=== PATIENT | female | born 1965 | race Caucasian/White ===

== ENCOUNTER 2018-06-12 12:20 | Emergency (ER) | payer OTHER ==
--- NOTE | 2018-06-12 14:09 | RAD ---
RIGHT KNEE FOUR VIEWS: 06/12/2018 HISTORY: Fall from standing. Patient landed on bilateral knees. Bilateral knee injury. FINDINGS: There is tricompartment osteophytosis. There is narrowing involving the medial joint compartment of the left knee. No fracture or dislocation is seen. There is lucency seen below the tibial spines, n oted on one of the oblique views, which may be related to subchondral cystic formation. IMPRESSION: Osteoarthritis without evidence of an acute fracture visualized. POS: KAIN
--- NOTE | 2018-06-12 14:10 | RAD ---
LEFT KNEE FOUR VIEWS: HISTORY: Pain. Injury. Fell from standing position. FINDINGS: There is an uncomplicated left knee arthroplasty. No fracture. No cortical irregularity or perioste al reaction. No joint effusion. IMPRESSION: No posttraumatic change. POS: KAIN
== END 2018-06-12 13:51 | disposition home or self-care (01) ==
LOC: ERS 12:20
DX: S80.02XA Contusion of left knee, initial encounter (principal); S80.01XA Contusion of right knee, initial encounter; I10 Essential (primary) hypertension; Z79.899 Other long term (current) drug therapy; W01.0XXA Fall on same level from slipping, tripping and stumbling without subsequent striking against object, initial encounter; Y93.01 Activity, walking, marching and hiking

== ENCOUNTER 2018-10-16 09:42 | Emergency (ER) | payer OTHER ==
--- NOTE | 2018-10-16 10:39 | RAD ---
RIGHT ANKLE RADIOGRAPHS THREE VIEWS: Date: 10-16-18 Provided Clinical History: Right ankle pain status post injury. FINDINGS: There is no evidence for fracture or other acute osseous abnormality. If there is persistent clinical concern, conservative management and follow up imaging are advised. IMPRESSION: As above. POS: TPC
--- NOTE | 2018-10-16 10:45 | RAD ---
RIGHT KNEE RADIOGRAPHS FOUR VIEWS: 10/16/2018 PROVIDED CLINICAL HISTORY: Right knee pain status post injury. COMPARISON: 06/12/2018 FINDINGS: Tricompartmental degenerative changes are redemonstrated with medial femorotibial joint space narrowi ng again seen. There is no evidence for fracture or other acute osseous abnormality. No significant knee joint capsular distention is evident. IMPRESSION: Degenerative change without evidence for an acute osseous abnormality. If there is persistent clinical concern, conservative management and follow-up imaging are advised. POS: TPC
--- NOTE | 2018-10-16 11:50 | RAD ---
RIGHT TIBIA AND FIBULA 2 VIEWS: Date: 10/16/18 HISTORY: Injury. Fall. COMPARISON: None. FINDINGS: Mild pretibial soft tissue swelling. No acute displaced fracture or malalignment. Advanced degenerati ve changes of the medial compartment of the knee. IMPRESSION: 1. No acute displaced fracture or malalignment. 2. Mild pretibial soft tissue swelling may be sequelae of contusion. 3. Advanced degenerative changes of medial compartment of knee. POS: GWENDOLYN
== END 2018-10-16 12:06 | disposition home or self-care (01) ==
LOC: ERS 09:42
DX: S80.01XA Contusion of right knee, initial encounter (principal); I10 Essential (primary) hypertension; Z79.899 Other long term (current) drug therapy; W01.10XA Fall on same level from slipping, tripping and stumbling with subsequent striking against unspecified object, initial encounter

== ENCOUNTER 2019-04-22 09:13 | Outpatient (CLI) | payer OTHER ==
--- NOTE | 2019-04-22 10:36 | MRI ---
MRI Lower Ext Jt Rt WO Con History: M 24.871. Fall. Talus pain. Swelling. Comparison: Ankle radiographs of September 2018 Findings: Ligaments: ATFL and PITFL are intact. ATFL and PTFL are intact. The superomedial band spring ligament is abnorma lly thickened with partial tear at its navicular insertion. Superficial and deep deltoid ligaments are intact. Bones: Small osteochondral defect posterior medial talar dome measuring 6 mm in transverse by 7 mm in AP dimension with less than 2 mm articular surface step-off. Overlying cartilage is highly frayed. No acute displaced fracture is appreciated. Tendons: Achilles tendon is intact. Partial tearing of the navicular insertion of the posterior tibia l tendon. Longitudinal split tear peroneus brevis at the level of the lateral malleolus for length of 3 cm. Retromalleolar groove is concave. Muscles: Muscle signal and bulk is normal. Soft tissues: Mild thickening of the central band plantar fascia without perifascial edema. Impression: 1. High-grade tear at the navicular insertion supermedial band spring ligament. 2. Mild tendinosis and partial tearing of the navicular insertion posterior tibial tendon. 3. Longitudinal split tear peroneus brevis from the level of the lateral malleolus for length of 3 cm . 4. Osteochondral defect posterior medial talar dome measuring 6 x 7 mm with a sub-2 mm articular surf jj depression. Overlying cartilage is highly frayed.
== END 2019-04-22 09:14 | disposition home or self-care (01) ==
LOC: SCSMRI 09:13
DX: M24.871 Other specific joint derangements of right ankle, not elsewhere classified (principal); M76.821 Posterior tibial tendinitis, right leg; S86.812A Strain of other muscle(s) and tendon(s) at lower leg level, left leg, initial encounter; M94.0 Chondrocostal junction syndrome [Tietze]